=== PATIENT | male | born 1970 | race Caucasian/White ===

== ENCOUNTER 2022-10-20 13:52 | Emergency (ER) | payer OTHER ==
[~2022-10-20] VITALS: Ht 188 cm; Wt 118.2 kg
[2022-10-20 13:59] VITALS: BP 176/100
[2022-10-20] MEDS ORDERED: TETanus/Pertussis (Acell)/Diphther VAC/PF (Tdap-Adult) 0.5ml syringe IMVAC ONE (16:20)
[2022-10-20] MEDS ORDERED: amox tr/potassium clavulanate 875/125mg TAB PO ONE (16:20)
[2022-10-20] MEDS ORDERED: AMOX-117 PO (16:22)
== END 2022-10-20 16:54 | disposition home or self-care (01) ==
LOC: ER 13:52
DX: S81.832A Puncture wound without foreign body, left lower leg, initial encounter (principal); Z79.899 Other long term (current) drug therapy; W54.0XXA Bitten by dog, initial encounter; Y93.89 Activity, other specified; Y92.89 Other specified places as the place of occurrence of the external cause; Y99.8 Other external cause status
CPT/HCPCS: 73590; 90471; 90715; 99283; A6449